=== PATIENT | male | born 1955 | race Caucasian/White ===

== ENCOUNTER 2020-09-08 14:09 | Outpatient (RCR) | payer MEDICARE, SELFPAY ==
[2020-09-08] MEDS: COVID-19 VACC, MRNA(PFIZER)/PF 30 MCG/0.3 ML SYRINGE IM (07:16)
[2020-09-29] MEDS: COVID-19 VACC, MRNA(PFIZER)/PF 30 MCG/0.3 ML SYRINGE IM (07:02)
== END 2020-09-08 23:59 ==
LOC: IMMUN 14:09
PROVIDERS: PCP Family Medicine; Visit Provider Family Medicine
DX: Z23 Encounter for immunization (principal)
CPT/HCPCS: 0001A; 0002A

== ENCOUNTER → 2022-11-01 | Outpatient (CLI) | payer MEDICARE, SELFPAY ==
--- NOTE | 2022-11-01 09:41 | ART_ITS ---
Reason For Study: PVD Procedure A bilateral lower extremity continuous wave Doppler with analog waveform analysis,segmental pressures,and ankle brachial indexes without exercise. Left Segmental Pressures Left brachial= 147mmHg. Left posterior tibial artery = 185mmHg. Left dorsalis pedis artery = 176mmHg. The left dorsalis pedis waveforms are triphasic. The left posterior tibial artery waveforms are triphasic. Right Segmental Pressures Right brachial= 154mmHg. Right posterior tibial artery = 163mmHg. Right dorsalis pedis artery = 159mmHg. The right dorsalis pedis waveforms are triphasic. The right posterior tibial artery waveforms are triphasic. Indices The right ankle brachial index by the dorsalis pedis is 1.03. The right ankle brachial index by the posterior tibial artery is 1.06. The left ankle brachial index by the posterior tibial artery is 1.2. The left ankle brachial index by the dorsalis pedis is 1.14. Unable to obtain PPG waveforms in bilateral great toes. No digital pressures taken due to absent PPG's of great toes. VL/Lower Ext Art Exam w/o Exercis Interpretation Summary Right CELSO 1.06, normal. Doppler/PVR waveforms of the right leg normal at rest. Digit waveforms diminished, pedal/digit disease Left CELSO 1.2, normal. Doppler/PVR waveforms of the left leg normal at rest. Dig it waveforms diminished, pedal/digit disease Ordering Physician: Aries Felix Performed By: Kishore Ortega RVMichelle
== END | disposition home or self-care (01) ==
PROVIDERS: PCP Family Medicine; Referring Provider Podiatrist; Visit Provider Podiatrist
DX: I73.9 Peripheral vascular disease, unspecified (principal)
CPT/HCPCS: 93923

== ENCOUNTER → 2022-11-19 | Outpatient (CLI) | payer MEDICARE, SELFPAY ==
--- NOTE | 2022-11-19 08:40 | VDLE_ITS ---
Reason For Study: Bilateral leg pain RIGHT LEFT CFV is compressible, spontaneous, phasic, CFV is compressible, spontaneous, phasic, competent and demonstrates normal competent, and demonstrates normal augmentation. augmentation. FV is compressible, spontaneous, phasic, FV is compressible, spontaneous, phasic, competent and demonstrates normal competent and demonstrates normal augmentation. augmentation. POP V is compressible, spontaneous, phasic, POP V is compressible, spontaneous, phasic, competent and demonstrates normal competent and demonstrates normal augmentation. augmentation. T/P Trunk is compressible. T/P Trunk is compressible. PTV is compressible. PTV is compressible. RT PerV is compressible. LT PerV is compressible. SFJ is competent and measures 0.52 x 0.52 cm. SFJ is competent and measures 0.46 x 0.50 cm. GSV proximal thigh measures 0.29 x 0.28 cm. GSV proximal thigh measures 0.36 x 0.36 cm. GSV at knee measures 0.23 x 0.22 cm. GSV above knee is competent. GSV INCOMPETENT throughout for greater than GSV at knee measures 0.34 x 0.29 cm. 0.5 seconds. GSV below knee is INCOMPETENT for greater ASV distal thigh is INCOMPETENT for greater than 0.5 seconds. than 0.5 seconds and measures 0.28 x 0.27 cm. SSV proximal calf is competent and measures SSV proximal calf is competent and measures 0.07 x 0.09 cm. 0.35 x 0.38 cm. Procedure This is a venous duplex using B-mode, color flow and spectral Doppler. Exam performed in department. Patient was scanned in reverse Trendelenburg position during reflux assessment. VL/Venous Duplex US - Venancio Extrem Interpretation Summary Deep veins of the bilateral lower extremities are patent and compressible segme ntally. There is no evidence of bilateral lower extremity deep vein thrombosis. The bilateral great saphenous veins appear patent and compressible segmentally. Positive for reflux in the right great saphenous vein, accessory saphenous vein Positive for reflux in the left great saphenous vein Ordering Physician: Josi Wells Referring Physician: Keron Osullivan Performed By: Kalpana Ramsay RVT
--- NOTE | 2022-11-19 08:40 | ART_ITS ---
Version 2 Reason For Study: PVD Procedure A bilateral lower extremity continuous wave Doppler with analog waveform analysis,segmental pressures,and ankle brachial indexes without exercise. Exam performed with Raynaud's protocol. Left Segmental Pressures Left brachial= 136mmHg. Left posterior tibial artery = 180mmHg. Left dorsalis pedis artery = 163mmHg. The left dorsalis pedis waveforms are triphasic. The left posterior tibial artery waveforms are triphasic. Right Segmental Pressures Right brachial= 136mmHg. Right posterior tibial artery = 194mmHg. Right dorsalis pedis artery = 190mmHg. The right dorsalis pedis waveforms are triphasic. The right posterior tibial artery waveforms are triphasic. Indices The right ankle brachial index by the dorsalis pedis is 1.40. The right ankle brachial index by the posterior tibial artery is 1.43. The left ankle brachial index by the dorsalis pedis is 1.20. The left ankle brachial index by the posterior tibial artery is 1.32. VL/Lower Ext Art Exam w/o Exercis Interpretation Summary Right CELSO 1.43, normal. Doppler/PVR waveforms of the right leg normal at rest. Digit pressures suppressed with cold immersion with no return to baseline at 20 minutes Left CELSO 1.32, normal. Doppler/PVR waveforms of the left leg normal at rest. Digit pressures suppressed with cold immersion with no return to baseline at 20 minutes Ordering Physician: Josi Wells Referring Physician: Keron Osullivan Performed By: Kalpana Ramsay RVT
== END | disposition home or self-care (01) ==
LOC: CVS 08:40
PROVIDERS: PCP Family Medicine; Referring Provider Physician Assistant; Visit Provider Physician Assistant
DX: I73.9 Peripheral vascular disease, unspecified (principal); M79.671 Pain in right foot
CPT/HCPCS: 93923; 93970

== ENCOUNTER → 2022-12-05 | Outpatient (CLI) | payer MEDICARE, SELFPAY ==
[2022-12-05 12:51] LABS: Absolute Neutrophil Count 3.7 X10^3/uL (2.0-7.7); Basophil# 0.07 X10^3/uL; Basophil% 1.2 % (0-1); Eosinophils% 3.4 % (0-5); Hematocrit 48.9 % (40-54); Hemoglobin 16.6 g/dL (13.0-16.5); Lymphocyte % 23.7 % (19-41); Mean Corp Hgb Conc 33.9 g/dL (32-36); Mean Corpuscular Hgb 30.9 pg (27.0-32.0); Mean Corpuscular Volume 90.9 fL (80-94); Monocyte# 0.53 X10^3/uL; NRBC Flagged by Analyzer 0 % (0-5); Neutrophil # 3.68 X10^3/uL (2.7-7.7); Neutrophil % 62.2 % (47-70); Platelet Count 245 K/mm3 (150-450); RBC Distribution Width CV 13.7 % (11.6-14.6); RBC Distribution Width SD 46.1 fl (35.1-43.9); Red Blood Count 5.38 M/mm3 (4.6-6.2); White Blood Count 5.9 K/mm3 (4.4-11.0)
[2022-12-05 13:51] LABS: ALB/GLOB Ratio 1.1 RATIO (0.9-2.4); AST(SGOT) 25 U/L (15-37); Alanine Aminotransfer ALT/SGPT 27 U/L (16-61); Albumin, Serum 3.9 g/dL (3.2-5.0); Alkaline Phosphatase 72 U/L (45-117); Anion Gap 7 (5-15); BUN 19 mg/dL (7-18); BUN/Creat Ratio 18.1 RATIO (10-20); Calcium,Total 8.4 mg/dL (8.5-10.1); Chloride 106 mmol/L (98-107); Cholesterol 134 mg/dL (200); Creatinine, Serum 1.05 mg/dL (0.70-1.30); EST Glomerular Filtration Rate 74 mL/min (>60); Est Glom Filt Rate - Afr Amer 90 mL/min (>60); Globulin 3.5 g/dL (2.2-4.2); Glucose 101 mg/dL (74-106); High Density Lipoprotein 60 mg/dL; PSA,Total- Diagnostic 0.04 ng/mL (0.0-4.0); Potassium 4.3 mmol/L (3.5-5.1); Protein, Total 7.4 g/dL (6.4-8.2); Sodium Level 139 mmol/L (136-145); Triglycerides 45 mg/dL; Very Low Density Lipoprotein 9 mg/dL (5-40)
== END | disposition home or self-care (01) ==
LOC: BIMLAB 08:16
PROVIDERS: PCP Family Medicine; Visit Provider Internal Medicine
DX: I10 Essential (primary) hypertension (principal); R09.89 Other specified symptoms and signs involving the circulatory and respiratory systems; Z85.46 Personal history of malignant neoplasm of prostate
CPT/HCPCS: 36415; 80053; 80061; 84153; 85025

== ENCOUNTER → 2023-04-06 | Outpatient (CLI) | payer MEDICARE, SELFPAY ==
--- NOTE | 2023-04-06 07:30 | MRI_ITS ---
EXAM: MR LUMBAR SPINE WITHOUT INTRAVENOUS CONTRAST CLINICAL INDICATION: LEFT SIDED LOW BACK PAIN TECHNIQUE: Multiplanar and multisequence MR images of the lumbar spine without intravenous contrast. Magnetic field strength 1.5 T. COMPARISON: No relevant prior studies available. FINDINGS: VERTEBRAE: Moderate dextroscoliosis measuring 38 degrees centered at the L1-L2 level.. SPINAL CORD: Unremarkable. Normal position and signal intensity of the conus medullaris. SOFT TISSUES: Unremarkable. DISCS/SPINAL CANAL/NEURAL FORAMINA: T12-L1: Moderate loss of disc height and disc signal. Slight generalized disc bulge. No spinal canal, foraminal, or lateral recess stenosis. L1-L2: Moderate loss of disc height and disc signal. Mild generalized disc bulge. No spinal canal, foraminal, or lateral recess stenosis. Mild bilateral facet arthropathy. L2-L3: Moderate loss of disc height and disc signal. Moderate generalized disc bulge. Bilateral mild facet arthropathy with bilateral ligamentum flavum thickening. AP diameter of the dural sac is narrowed to 7.5 mm and there is effacement of the CSF around the cauda equina. Moderate right and mild left neural foraminal narrowing due to the generalized disc bulge, facet arthropathy and ligamentum flavum thickening. Normal spinal canal and lateral recesses. L3-L4: Marked loss of disc height and disc signal. Mild generalized disc bulge. The dural sac is narrowed to 1.1 cm. Moderate bilateral facet arthropathy and ligamentum flavum thickening. Relatively severe right neural foraminal narrowing due to facet arthropathy and ligamentum flavum thickening with mild generalized disc bulge. Normal spinal canal and lateral recesses. L4-L5: Marked loss of disc height. Mixed low and high signal within the disc space. Modic type II endplate changes consistent with degenerated disc. No spinal canal, foraminal, or lateral recess stenosis. L5-S1: Unremarkable. Normal disc height and morphology. Normal spinal canal and lateral recesses. Normal neuroforamina. MRI/Spine Lumbar (Routine) IMPRESSION: 1. Moderate dextroscoliosis measuring 38 degrees centered at the L1-L2 level.. 2. L2-L3 spondylosis with moderate spinal stenosis with effacement of the CSF around the cauda equina with moderate right and mild left neural foraminal stenosis due to the generalized disc bulge, bilateral facet arthropathy, and ligamentum flavum thickening. 3. L3-L4 spondylosis with mild generalized disc bulge, bilateral facet arthropathy, and ligamentum flavum thickening that causes relatively severe right neural foraminal narrowing. No significant spinal canal stenosis. 4. Diffuse lumbar spondylosis with bilateral multilevel vertebral facet arthropathy. Electronically Signed: Prem Quesada MD at 5:51 EDT ,
== END | disposition home or self-care (01) ==
LOC: MRI 07:15
PROVIDERS: PCP Family Medicine; Referring Provider Orthopaedic Surgery; Visit Provider Orthopaedic Surgery
DX: M54.50 Low back pain, unspecified (principal); M41.56 Other secondary scoliosis, lumbar region
CPT/HCPCS: 72148

== ENCOUNTER → 2023-08-12 | Outpatient (CLI) | payer MEDICARE, SELFPAY ==
--- OUTSIDE RECORDS SUMMARY | 2023-08-12 08:18 | XMS RPT_ITS | CCD ---
Author Name Unknown Address [address] [place] [address] Organization [facility] Care Team Providers Care Chemical Weigher Name Role Phone HERMELINDO JOHNSON Unavailable Unavaila ble HERMELINDO JOHNSON Unavailable Unavaila ble Results Test Name Value Interpretation Reference Range Facil ity Encounters Encounter Date Encounter Type Care Provider Facility Start: 01-15-2017 End: 01-16-2017 Ambulatory HERMELINDO JOHNSON [facility] Summary Purpose Family History No Family History Records FoundNo Family History Records FoundNo Family History Records Found Advance Directives No Advanced Directives Records FoundNo Advanced Directives Records FoundNo Advanced Directives Records Found Additional Source Comments (unrecognized sect ion and content) No Status Records FoundNo Status Records FoundNo Status Records Found INFORMATION SOURCE (unrecogn ized section and content) DATE CREATED AUTHOR AUTHOR'S ORGANIZ ATION 01/24/2018 [facility] DATE CREATED AUTHOR AUTHOR'S ORGANIZ ATION 01/27/2019 [facility] FOR RECORDS PERTAINING TO PATIENTS WHO ARE OR HAVE BEEN ENROLLED IN A CHEMICAL DEPENDENCY/SUBSTANCEABUSE PROGRAM, SOME INFORMATION MAY BE OMITTED. This clinical summary was aggregated from multiple sources. Caution should be exercised in using it in the provision of clinical care. This summary normalizes information from multiple sources, and as a consequence, information in this document may materially change the coding, format and clinical context of patient data. In addition, data may be omitted in some cases. CLINICAL DECISIONS SHOULD BE BASED ON THE PRIMARY CLINICAL RECORDS. [employer] provides no warranty or guarantee of the accuracy or completeness of information in this document.
[2023-08-12 12:23] LABS: Absolute Lymphocyte Count 1.71 X10^3/uL (0.83-4.51); Absolute Neutrophil Count 4.1 X10^3/uL (2.0-7.7); Basophil# 0.07 X10^3/uL; Eosinophil# 0.23 X10^3/uL; Eosinophils% 3.4 % (0-5); Hematocrit 49.4 % (40-54); Hemoglobin 16.8 g/dL (13.0-16.5); Lymphocyte # 1.71 X10^3/ul (0.83-4.51); Lymphocyte % 25.2 % (19-41); Mean Corpuscular Hgb 30.3 pg (27.0-32.0); Mean Corpuscular Volume 89.2 fL (80-94); Mean Platelet Vol. 9.7 fl (6.2-12.0); Monocyte# 0.69 X10^3/uL; Monocyte% 10.2 % (0-10); NRBC Flagged by Analyzer 0 % (0-5); Neutrophil # 4.05 X10^3/uL (2.7-7.7); Neutrophil % 59.8 % (47-70); Platelet Count 276 K/mm3 (150-450); RBC Distribution Width CV 13.4 % (11.6-14.6); RBC Distribution Width SD 43.8 fl (35.1-43.9); Red Blood Count 5.54 M/mm3 (4.6-6.2); White Blood Count 6.8 K/mm3 (4.4-11.0)
[2023-08-12 13:17] LABS: ALB/GLOB Ratio 0.9 RATIO (0.9-2.4); AST(SGOT) 23 U/L (15-37); Alanine Aminotransfer ALT/SGPT 35 U/L (16-61); Albumin, Serum 3.8 g/dL (3.2-5.0); Alkaline Phosphatase 83 U/L (45-117); Anion Gap 7 (5-15); BUN 16 mg/dL (7-18); BUN/Creat Ratio 13.6 RATIO (10-20); Calcium,Total 9.1 mg/dL (8.5-10.1); Chloride 106 mmol/L (98-107); Creatinine, Serum 1.18 mg/dL (0.70-1.30); EST Glomerular Filtration Rate 65 mL/min (>60); Est Glom Filt Rate - Afr Amer 79 mL/min (>60); Globulin 4.2 g/dL (2.2-4.2); Glucose 89 mg/dL (74-106); PSA,Total- Diagnostic 0.04 ng/mL (0.0-4.0); Potassium 4.5 mmol/L (3.5-5.1); Sodium Level 139 mmol/L (136-145)
== END | disposition home or self-care (01) ==
LOC: BIMLAB 08:01
PROVIDERS: PCP Internal Medicine; Referring Provider Internal Medicine; Visit Provider Internal Medicine
DX: I10 Essential (primary) hypertension (principal); Z85.46 Personal history of malignant neoplasm of prostate
CPT/HCPCS: 36415; 80053; 84153; 85025

== ENCOUNTER → 2023-10-31 | Outpatient (CLI) | payer MEDICARE, SELFPAY ==
--- NOTE | 2023-10-31 08:46 | ART_ITS ---
Reason For Study: abnormal vasc flow Procedure A bilateral lower extremity continuous wave Doppler with analog waveform analysis and ankle brachial indexes. Left Segmental Pressures Left brachial= 131mmHg. Left posterior tibial artery = 159mmHg. Left dorsalis pedis artery = 153mmHg. Left digit = 74 mmHg. The left dorsalis pedis waveforms are triphasic. The left posterior tibial artery waveforms are triphasic. Right Segmental Pressures Right posterior tibial artery = 156mmHg. Right dorsalis pedis artery = 167mmHg. Right digit = 66 mmHg. Right brachial= 131mmHg. The right dorsalis pedis waveforms are triphasic. The right posterior tibial artery waveforms are triphasic. Indices The right ankle brachial index by the dorsalis pedis is 1.27. The right ankle brachial index by the posterior tibial artery is 1.19. The right digital-brachial index is .5. The left ankle brachial index by the dorsalis pedis is 1.17. The left ankle brachial index by the posterior tibial artery is 1.21. The left digital-brachial index is .56. VL/Ankle Brachial Index Interpretation Summary Right CELSO 1.27, normal. Doppler/PVR waveforms of the right ankle normal at rest . TBI and digit waveforms diminished, pedal/digit disease vs spasm. Left CELSO 1.21, normal. Doppler/PVR waveforms of the left ankle normal at rest. TBI and digit waveforms diminished, pedal/digit disease vs spasm. Ordering Physician: Arlin Alfonso Referring Physician: ARLIN ALFONSO MD Performed By: UVALDO HENSON RVT [facility]
== END | disposition home or self-care (01) ==
PROVIDERS: PCP Internal Medicine; Referring Provider Internal Medicine; Visit Provider Internal Medicine
DX: R09.89 Other specified symptoms and signs involving the circulatory and respiratory systems (principal)
CPT/HCPCS: 93922

== ENCOUNTER 2023-11-04 11:19 | Day surgery (SDC) | payer MEDICARE, SELFPAY ==
[2023-11-04 11:32] VITALS: BP 142/93; PULSE 86; RESP 16; TEMP 36; O2SAT 99; BMI 26.2
[2023-11-04] MEDS: Lactated Ringers 1,000 ML 15 ML IV (11:40)
--- NOTE | 2023-11-04 12:16 | H&P.OPEN ---
HPI - General HPI Narrative RUSLAN GARRISON, is a 68 M who presents for surveillance colonoscopy. His last colonoscopy was 78 years ago and a polyp was removed. He denies any abdominal pain or blood in the stool. He has no family history of colon cancer. He is not on any blood thinners. [facility] Medical History (Updated 11/04/23 @ 12:[address] Lee Wallace MD) Arthritis Cancer Deviated septum Flat foot Heartburn Hx of colonic polyps Non-smoker Prostate CA Prostate disease Scoliosis Wears glasses Home Medications loratadine 5 mg-pseudoephedrine ER 120 mg tablet,extended release,12hr (Claritin-D 12 Hour) 1 tab PO Q12H PRN allergy symptoms 11/14/22 [History Last Taken 11/03/23] ibuprofen 200 mg tablet 200 mg PO Q6H PRN pain 11/29/22 [History Last Taken 11/03/23] fluticasone propionate 50 mcg/actuation nasal spray,suspension 1 spray intranasal DAILY PRN nasal congestion 05/23/23 [History Last Taken 11/03/23] amlodipine 2.5 mg tablet 2.5 mg PO DAILY #90 tabs 08/06/23 [Rx Last Taken 11/04/23] omeprazole 10 mg capsule,delayed release 10 mg PO DAILY PRN heartburn 08/06/23 [History Last Taken Unknown] Allergy/AdvReac Type Severity Reaction Status Date / Time No Known Allergies Allergy Verified 11/04/23 11:32 Family History Father Heart disease Brother Heart disease Prostate cancer Mother CVA (cerebral vascular accident) Sister Thyroid disorder Hypertension Grandfather Prostate cancer Surgical History (Updated 10/30/23 @ 13:28 by Terri Chris) H/O prostatectomy History of sinus surgery Hx of cataract removal with insertion of prosthetic lens Hx of colonoscopy Hx of hernia repair S/P bilateral foot surgery (~2015) S/P bunionectomy Social History household members: none current occupational status: retired current occupation: [employer] in maintenance Smoking Status: Never smoker Smokeless tobacco user: chewing tobacco Electronic Cigarette Use: not used quit status: not considering quitting alcohol intake: never substance use type: does not use what type of physical activity do you participate in: none do you feel safe at home: Yes Past Medical/Surgical History Planned Operation Planned Operative Procedure/s: CSCOPE Previous Hospitalizations/Surgeries HX Hospitalizations: No Any Problems With Anesthesia: Yes (SLOW TO WAKE) You/Your Family Experience Fever (Hyperthermia) With Anes: No Cholinesterase deficiency: No Cardiovascular Hx Hypertension: Yes (CONTROLLED WITH MED) Respiratory Hx Sleep Apnea: No Hx Respiratory Tract Infection/Cold (presently): No Do You Snore Loudly (louder than talking or can be heard): No Do You Often Feel Tired/ Fatigued/ Sleepy Dring Daytime?: No Has Anyone Observed You Stop Breathing During Sleep?: No Result (for STOP score): Negative Smoking Status: Never smoker Neurological Does patient have nerve stimulator: No Reproduction : No Miscellaneous Recent Exposure to Contagious Disease: No Allergies No Known Allergies Allergy (Verified 11/04/23 11:32) Discharge Is Pt Admitted From a Senior Living, or a Mcfp: No After D/C, Where Do you Plan to Go: Return Home Vital Signs Vital Signs Vital Signs: 11/04/23 11:32 11/04/23 11:32 Temperature 96.8 F L Temperature Source Temporal Pulse Rate 86 Respiratory Rate 16 Respiratory Pattern Normal Blood Pressure 142/93 H Blood Pressure Mean 109 Blood Pressure Source Monitor Blood Pressure Position Semi-Fowlers Blood Pressure Location Right Arm Pulse Ox 99 Oxygen Delivery Method Room Air Weight Weight: 182 lb 12.8 oz Body Mass Index (BMI) 26.2 Physical Exam Const alert and oriented x3 HEENT normocephalic Eyes PERRL Resp normal respiratory effort and normal air movement Cardio regular rate and regular rhythm GI soft to palpation, non-tender and non-distended Extremity normal to inspection Assessment & Plan Assessment/Plan (1) Hx of colonic polyps: PLAN: Patient had a history of colon polyp 7-8 years ago. He is here for surveillance colonoscopy. I explained endoscopy in detail to the patient. I explained the risks including but not limited to stroke or heart attack with anesthesia, perforation of the GI tract, bleeding, infection. I explained that any of these could necessitate further emergency surgery. The patient understands and all questions were answered sufficiently. The patient wishes to proceed with procedure. Lee Wallace MD Pager: [facility] [address] [place] [address], [address] [place] [address] Office: Surgery Risks - Colonoscopy Risks Include but are not Limited To: Risks include but are not limited to: Bleeding, perforation requiring further surgery, inability to complete colonoscopy requiring barium enema.
--- NOTE | 2023-11-04 12:30 | COLBX_PTH ---
PATIENT: RUSLAN GARRISON LOC: EN U#:[id number] AGE/SX: 68/M ROOM: RE11/04/[address]: Dr. Lee Wallace MD : 1955 BED: DIS: 11/04/2023 SPEC #: [id number] RECD: 11/04/23 15:52 STATUS: MARY ARELLANO #: [id number] ANTONIO: 11/04/23 12:[address]: Lee Wallace DEPT: SURGICAL PATHOLOGY RECD BY: Radha Castrejon ENTERED: 11/05/23 07:44 SP TYPE: COLON BX OTHR DR: Dr. Shayla Alfonso MD Tissues: Rectum, NOS Procedures: Surgery Specimen Level IV HEADER OPERATION: Colonoscopy with polypectomy PRE-OP DIAGNOSIS: History of colonic polyps TISSUE SUBMITTED: Rectal polyp MICROSCOPIC DIAGNOSIS Rectal polyp, biopsy: Hyperplastic polyp. AM/mr 11/06/23 MICROSCOPIC DESCRIPTION Slides are reviewed. GROSS DESCRIPTION Received in fixative is one container labeled with the patient's name and designated Rectal polyp. The specimen consists of multiple irregular fragments of light cm soft tissue that in aggregate measure 0.6 x 0.6 x 0.2 cm. The specimen is totally submitted in one cassette. AM/ 11/05/2023 TC:5 CPT:87187
--- NOTE | 2023-11-04 12:45 | OP.CCLET_ITS ---
11/04/2023 Shayla Alfonso Md Re : Colonoscopy procedure for Walter Frye Dear Kaden This procedure was performed on Saturday, November 04, 2023. My impressions and recommendations are as follows: Impressions : - One small polyp in the rectum, removed with a hot snare. Resected and retrieved. - The examination was otherwise normal on direct and retroflexion views. Recommendations : - Discharge patient to home. - Resume previous diet. - Continue present medications. - Await pathology results. - Repeat colonoscopy for surveillance based on pathology results. My findings are described in the full procedure note, which is enclosed. If I can be of further assistance, please feel free to contact me at Doctor phone number(s): , Work: . Sincerely, Lee Wallace MD 11/04/2023 12:44:46 PM This report has been signed electronically.
--- NOTE | 2023-11-04 12:45 | OP.COLON_ITS ---
Patient Name: Walter Frye Procedure Date: 11/04/2023 12:18 PM Date of : 1955 Age: 68 Procedure: Colonoscopy Indications: High risk colon cancer surveillance: Personal history of colonic polyps Providers: Lee Wallace MD Referring MD: Lee Wallace MD Medicines: Propofol per Anesthesia Patient Profile: Last Colonoscopy: several years ago. Complications: No immediate complications. Procedure: Pre-Anesthesia Assessment: - Prior to the procedure, a History and Physical was performed, and patient medications and allergies were reviewed. The patient's tolerance of previous anesthesia was also reviewed. The risks and benefits of the procedure and the sedation options and risks were discussed with the patient. All questions were answered, and informed consent was obtained. Prior Anticoagulants: The patient has taken no anticoagulant or antiplatelet agents. After reviewing the risks and benefits, the patient was deemed in satisfactory condition to undergo the procedure. After I obtained informed consent, the scope was passed under direct vision. Throughout the procedure, the patient's blood pressure, pulse, and oxygen saturations were monitored continuously. The Colonoscope was introduced through the anus and advanced to the cecum, identified by appendiceal orifice and ileocecal valve. The colonoscopy was performed without difficulty. The patient tolerated the procedure well. The quality of the bowel preparation was good. The ileocecal valve, appendiceal orifice, and rectum were photographed. Scope In: 12:24:51 PM Scope Withdrawal Time 0 hours 11 minutes 56 seconds Scope Out: 12:42:20 PM Total Procedure Duration Time 0 hours 17 minutes 29 seconds Findings: A small polyp was found in the rectum. The polyp was removed with a hot snare. Resection and retrieval were complete. The exam was otherwise without abnormality on direct and retroflexion views. Impression: - One small polyp in the rectum, removed with a hot snare. Resected and retrieved. - The examination was otherwise normal on direct and retroflexion views. Recommendation: - Discharge patient to home. - Resume previous diet. - Continue present medications. - Await pathology results. - Repeat colonoscopy for surveillance based on pathology results. Procedure Code(s): --- Professional --- 51642, Colonoscopy, flexible; with removal of tumor(s), polyp(s), or other lesion(s) by snare technique Diagnosis Code(s): --- Professional --- Z86.010, Personal history of colonic polyps D12.8, Benign neoplasm of rectum CPT copyright 2021 [employer]. All rights reserved. The codes documented in this report are preliminary and upon farrowing manager review may be revised to meet current compliance requirements. Lee Wallace MD 11/04/2023 12:44:46 PM This report has been signed electronically. Number of Addenda: 0 Note Initiated On: 11/04/2023 12:18 PM
[2023-11-04 12:46] VITALS: BP 120/79; BP 142/93; PULSE 85; RESP 16; TEMP 36.1; O2SAT 96
[2023-11-04 12:50] VITALS: BP 116/78; BP 142/93; PULSE 80; RESP 16; O2SAT 96
[2023-11-04 12:56] VITALS: BP 118/76; BP 142/93; PULSE 74; RESP 16; TEMP 36.8; O2SAT 97
[2023-11-04 13:29] VITALS: BP 142/93
== END 2023-11-04 13:30 | disposition home or self-care (01) ==
LOC: EN 11:20 → AC 11:21
PROVIDERS: PCP Internal Medicine; Referring Provider Surgery; Visit Provider Surgery
PROC: 0DJD8ZZ Inspection of Lower Intestinal Tract, Via Natural or Artificial Opening Endoscopic (ICD-10-PCS; CPT 45378; principal; 2023-11-04 12:25)
DX: Z12.11 Encounter for screening for malignant neoplasm of colon (principal); D12.8 Benign neoplasm of rectum; I10 Essential (primary) hypertension; F17.220 Nicotine dependence, chewing tobacco, uncomplicated; Z79.899 Other long term (current) drug therapy; Z86.010 Personal history of colon polyps
CPT/HCPCS: 45385; 88305; J7120

== ENCOUNTER → 2024-02-10 | Outpatient (CLI) | payer MEDICARE, SELFPAY ==
[2024-02-10 12:21] LABS: PSA,Total- Diagnostic 0.03 ng/mL (0.0-4.0)
== END | disposition home or self-care (01) ==
LOC: BIMLAB 09:02
PROVIDERS: PCP Internal Medicine; Referring Provider Urology; Visit Provider Urology
DX: C61 Malignant neoplasm of prostate (principal)
CPT/HCPCS: 36415; 84153

== ENCOUNTER → 2024-07-17 | Outpatient (CLI) | payer MEDICARE, SELFPAY ==
[2024-07-17 12:06] LABS: Absolute Lymphocyte Count 1.71 X10^3/uL (0.83-4.51); Absolute Neutrophil Count 4.2 X10^3/uL (2.0-7.7); Basophil# 0.07 X10^3/uL; Eosinophil# 0.22 X10^3/uL; Eosinophils% 3.2 % (0-5); Hematocrit 44.7 % (40-54); Hemoglobin 15.6 g/dL (13.0-16.5); Lymphocyte # 1.71 X10^3/ul (0.83-4.51); Lymphocyte % 24.6 % (19-41); Mean Corp Hgb Conc 34.9 g/dL (32-36); Mean Corpuscular Hgb 30.8 pg (27.0-32.0); Mean Corpuscular Volume 88.3 fL (80-94); Mean Platelet Vol. 9.6 fl (6.2-12.0); Monocyte# 0.68 X10^3/uL; Monocyte% 9.8 % (0-10); NRBC Flagged by Analyzer 0 % (0-5); Neutrophil # 4.23 X10^3/uL (2.7-7.7); Neutrophil % 60.7 % (47-70); Platelet Count 241 K/mm3 (150-450); RBC Distribution Width CV 13.6 % (11.6-14.6); RBC Distribution Width SD 43.8 fl (35.1-43.9); Red Blood Count 5.06 M/mm3 (4.6-6.2)
[2024-07-17 12:14] LABS: ALB/GLOB Ratio 0.9 RATIO (0.9-2.4); AST(SGOT) 18 U/L (15-37); Alanine Aminotransfer ALT/SGPT 45 U/L (16-61); Albumin, Serum 3.3 g/dL (3.2-5.0); Alkaline Phosphatase 72 U/L (45-117); Anion Gap 4 (5-15); BUN 18 mg/dL (7-18); BUN/Creat Ratio 19.8 RATIO (10-20); Calcium,Total 8.5 mg/dL (8.5-10.1); Chloride 108 mmol/L (98-107); Cholesterol 152 mg/dL (200); Creatinine, Serum 0.91 mg/dL (0.70-1.30); EST Glomerular Filtration Rate 87 mL/min (>60); Est Glom Filt Rate - Afr Amer 106 mL/min (>60); Globulin 3.5 g/dL (2.2-4.2); Glucose 124 mg/dL (74-106); High Density Lipoprotein 53 mg/dL; Potassium 4.1 mmol/L (3.5-5.1); Protein, Total 6.8 g/dL (6.4-8.2); Sodium Level 137 mmol/L (136-145); Triglycerides 225 mg/dL; Very Low Density Lipoprotein 45 mg/dL (5-40)
== END | disposition home or self-care (01) ==
LOC: BIMLAB 09:21
PROVIDERS: PCP Internal Medicine; Referring Provider Internal Medicine; Visit Provider Internal Medicine
DX: I10 Essential (primary) hypertension (principal)
CPT/HCPCS: 36415; 80053; 80061; 85025

== ENCOUNTER → 2025-02-11 | Outpatient (CLI) | payer MEDICARE, SELFPAY ==
[2025-02-11 10:15] LABS: PSA,Total- Diagnostic 0.03 ng/mL (0.00-4.00)
== END | disposition home or self-care (01) ==
PROVIDERS: PCP Internal Medicine; Referring Provider Urology; Visit Provider Urology
DX: C61 Malignant neoplasm of prostate (principal)
CPT/HCPCS: 36415; 84153